=== PATIENT | male | born 1970 | race Caucasian/White ===

== ENCOUNTER 2021-07-24 09:21 | Emergency (ER) | payer OTHER ==
[2021-07-24 09:38] VITALS: BP 119/84; PULSE 67; TEMP 97.6; BMI 21.1
== END 2021-07-24 11:30 | disposition home or self-care (01) ==
LOC: JERFT 09:21
DX: S80.912A Unspecified superficial injury of left knee, initial encounter (principal); M25.562 Pain in left knee; W22.8XXA Striking against or struck by other objects, initial encounter
CPT/HCPCS: 73562-TC-LT-FY; 99283-25